=== PATIENT | female | born 1950 | race Caucasian/White ===

== ENCOUNTER 2019-12-25 08:56 | Day surgery (SDC) | payer MEDICARE ==
[2019-12-25 09:22] VITALS: RESP 16; TEMP 97.9
[2019-12-25 11:44] VITALS: BP 144/66; PULSE 81
== END 2019-12-25 09:45 | disposition home or self-care (01) ==
LOC: CATHCVL 08:56
PROVIDERS: ATTEND Internal Medicine Infectious Disease
DX: N39.0 Urinary tract infection, site not specified (principal); B96.20 Unspecified Escherichia coli [E. coli] as the cause of diseases classified elsewhere; Z16.23 Resistance to quinolones and fluoroquinolones
CPT/HCPCS: 36410; 76937; C1751

== ENCOUNTER → 2019-12-27 | Outpatient (CLI) | payer MEDICARE ==
--- NOTE | 2019-12-29 19:29 | US ---
EXAMINATION TYPE: US kidneys/renal and bladder DATE OF EXAM: 12/27/2019 COMPARISON: NONE CLINICAL HISTORY: 69-year-old female N39.0 RECURRENT UTI. TECHNIQUE: Multiple sonographic images of the kidneys and bladder are obtained. FINDINGS: EXAM MEASUREMENTS: Right Kidney: 10.0 x 4.4 x 4.9 cm Left Kidney: 10.0 x 4.4 x 4.8 cm Right Kidney: Benign upper pole cyst measures 1.8 cm . No hydronephrosis. Left Kidney: No hydronephrosis. Bladder: No gross abnormality. Bilateral Jets seen: Yes IMPRESSION: No hydronephrosis. Benign 1.8 cm cyst on the right.
== END | disposition home or self-care (01) ==
LOC: RADUSWWP 16:15
PROVIDERS: ATTEND Internal Medicine Infectious Disease
DX: N28.1 Cyst of kidney, acquired (principal)
CPT/HCPCS: 76770

== ENCOUNTER 2022-12-04 14:20 | Emergency (ER) | payer MEDICARE ==
[2022-12-04 14:30] VITALS: RESP 18
[2022-12-04] MEDS ORDERED: ACETAMINOPHEN TAB 500 MG TAB PO STA (14:56)
[2022-12-04] MEDS ORDERED: ONDANSETRON 4 MG/2 ML VIAL IVP STA (15:06)
[2022-12-04 15:21] LABS: Basophils % (A) 0 %; Eosinophils # (A) 0.2 k/uL (0-0.7); Eosinophils % (A) 3 %; HCT 35.4 % (34.0-46.0); HGB 12.3 gm/dL (11.4-16.0); Lymphocytes # (A) 1.7 k/uL (1.0-4.8); Lymphocytes % (A) 26 %; MCH 32.5 pg (25.0-35.0); MCHC 34.8 g/dL (31.0-37.0); MCV 93.3 fL (80.0-100.0); Mean Platelet Volume 8.1; Monocytes # (A) 0.3 k/uL (0-1.0); Monocytes % (A) 5 %; Neutrophils # (A) 4.1 k/uL (1.3-7.7); Neutrophils % (A) 64 %; Platelet Count 156 k/uL (150-450); RDW 12.8 % (11.5-15.5); WBC 6.4 k/uL (3.8-10.6)
--- NOTE | 2022-12-04 15:26 | ED ---
Dizziness HPI - General Chief Complaint: Syncope Stated Complaint: Syncope, altered mental status Time Seen by Provider: 12/04/22 14:37 Source: EMS Mode of arrival: EMS Limitations: altered mental status - History of Present Illness Initial Comments: Patient is a 72-year-old female presents to the emergency department for syncopal episode. Patient was walking with family when she had a syncopal episode. Patient was unconscious for about 1 minute. No seizure-like activity. Patient does not take blood thinners. Patient woke up and was initially co nfused but family states she is acting normal now. Patient has mild pain in the back of her head where she fell. She denies generalized headache, neck pain, double vision, blurry vision, chest pain, shortness of breath. Patient has felt nauseous and has had multiple episodes of vomiting. She denies history of arrhythmia and seizure. She does admit to multiple previous episodes of syncope which she says were due to not eating. Patient states she drank a cup of coffee and oatmeal this morning. She did not drink any water. She felt well and had no concerns before the episode. No recent fever, vomiting, abdominal pain, diarrhea, blood in stool. She denies history of arrhythmia. States she has had an echocardiogram 10 years ago states it was normal. She denies any family history of sudden . She denies alcohol and drug use. Patient does have history of hypothyroidism. - Related Data Home Medications Medication Instructions Recorded Confirmed Calcium Carbonate [Calcium] 1,200 mg PO DAILY 12/25/19 12/04/22 Levothyroxine Sodium [Synthroid] 50 mcg PO DAILY 12/25/19 12/04/22 Alendronate Sodium [Fosamax] 70 mg PO FR 12/04/22 12/04/22 Cholecalciferol [Vitamin D3 (25 50 mcg PO DAILY 12/04/22 12/04/22 Mcg = 1000 Iu)] Cyanocobalamin (Vitamin B-12) 1,000 mcg PO DAILY 12/04/22 12/04/22 [Vitamin B-12] Famotidine [Pepcid] 40 mg PO DAILY 12/04/22 12/04/22 Magnesium Oxide [Magnesium] 500 mg PO DAILY 12/04/22 12/04/22 Multivit-Min/Folic Acid/Biotin 133.3 mcg PO DAILY 12/04/22 12/04/22 [Hair, Skin and Nails Softgel] Multivitamins, Thera [Multivitamin 1 tab PO DAILY 12/04/22 12/04/22 (formulary)] Turmeric Root Extract [Turmeric] 500 mg PO DAILY 12/04/22 12/04/22 Previous Rx's Medication Instructions Recorded Ondansetron Odt [Zofran Odt] 4 mg PO Q8HR PRN #10 tab 12/04/22 Allergies Allergy/AdvReac Type Severity Reaction Status Date / Time codeine Allergy Vomiting/Passed Verified 12/04/22 16:33 out Sulfa (Sulfonamide Allergy Unknown Verified 12/04/22 16:33 Antibiotics) Review of Systems ROS Statement: Those systems with pertinent positive or pertinent negative responses have been documented in the HPI. ROS Other: All systems not noted in ROS Statement are negative. Past Medical History Past Medical History: Thyroid Disorder History of Any Multi-Drug Resistant Organisms: None Reported Past Surgical History: No Surgical Hx Reported Smoking Status: Never smoker Past Alcohol Use History: None Reported Past Drug Use History: None Reported General Exam Limitations: altered mental status General appearance: alert, in no apparent distress Head exam: Present: atraumatic, normocephalic, normal inspection Eye exam: Present: normal appearance, PERRL, EOMI. Absent: scleral icterus, conjunctival injection, periorbital swelling ENT exam: Present: mucous membranes dry, TM's normal bilaterally Neck exam: Present: normal inspection, full ROM. Absent: tenderness, meningismus Respiratory exam: Present: normal lung sounds bilaterally. Absent: respiratory distress, wheezes, rales, rhonchi, stridor Cardiovascular Exam: Present: regular rate, normal rhythm, normal heart sounds. Absent: systolic murmur, diastolic murmur, rubs, gallop, clicks GI/Abdominal exam: Present: soft, normal bowel sounds. Absent: distended, tenderness, guarding, rebound, rigid Extremities exam: Present: normal inspection, full ROM, normal capillary refill Neurological exam: Present: alert, oriented X3, CN II-XII intact Psychiatric exam: Present: normal affect, normal mood Skin exam: Present: warm, dry, intact, normal color. Absent: rash Course Vital Signs 12/04/22 12/04/22 14:22 15:18 Temperature 98.8 F Pulse Rate 71 87 Respiratory 18 18 Rate Blood Pressure 149/89 141/79 O2 Sat by Pulse 97 Oximetry Medical Decision Making - Medical Decision Making EKG taken at 15:18, interpreted by me Sinus bradycardia, no ST segment or T-wave abnormality Ventricular rate 57, WI interval 195, QRS duration 82, QTc 444 Was pt. sent in by a medical professional or institution (, RONNIE, BAT LATHE OPERATOR, urgent care, hospital, or detention...) When possible be specific @ -No Did you speak to anyone other than the patient for history (EMS, parent, family, police, friend...)? What history was obtained from this source @Family helped provide history of a syncopal event Did you review nursing and triage notes (agree or disagree)? Why? @ -I reviewed and agree with nursing and triage notes Were old charts reviewed (outside hosp., previous admission, EMS record, old EKG, old radiological studies, urgent care reports/EKG's, detention records)? Report findings @ -No old charts were reviewed Differential Diagnosis (chest pain, altered mental status, abdominal pain women, abdominal pain men, vaginal bleeding, weakness, fever, dyspnea, syncope, headache, dizziness, GI bleed, back pain, seizure, CVA, palpatations, mental health)? @ -Differential Syncope: Valvular disease, hypertrophic cardiomyopathy, pulmonary embolism, tamponade, tachycardia, bradycardia, AR, hypovolemia, hemorrhage, dissection, anemia, intracranial hemorrhage, seizure, hypoglycemia, carbon monoxide poisoning, this is not meant to be an all-inclusive list. EKG interpreted by me (3pts min.). @ -As above X-rays interpreted by me (1pt min.). @ -Yes, chest x-ray shows no acute process CT interpreted by me (1pt min.). @ -None done U/S interpreted by me (1pt. min.). @ -None done What testing was considered but not performed or refused? (CT, X-rays, U/S, labs)? Why? @ -None What meds were considered but not given or refused? Why? @ -None Did you discuss the management of the patient with other professionals (professionals i.e. RONNIE Gibbons, BAT LATHE OPERATOR, lab, RT, psych nurse, social media community manager, control valve technician, teacher, medical information officer, case picker)? Give summary @ -No Was smoking cessation discussed for >3mins.? @ -No Was critical care preformed (if so, how long)? @ -No Were there social determinants of health that impacted care today? How? (Homelessness, low income, unemployed, alcoholism, drug addiction, transportation, low edu. Level, literacy, decrease access to med. care, [facility], rehab)? @ -No Was there de-escalation of care discussed even if they declined (Discuss DNR or withdrawal of care, Hospice)? DNR status @ -No What co-morbidities impacted this encounter? (DM, HTN, Smoking, COPD, CAD, Cancer, CVA, ARF, Chemo, Hep., AIDS, mental health diagnosis, sleep apnea, morbid obesity)? @ -None Was patient admitted / discharged? Hospital course, mention meds given and route, prescriptions, significant lab abnormalities, going to OR and other pertinent info. @ -This is a 72-year-old female presenting for syncopal episode. Patient appears dehydrated. Hemodynamically stable She presents in c-collar. She is alert and oriented 4. EKG shows no evidence of acute ischemia. Laboratory studies obtained. Troponin and d-dimer are within normal limits. There is mild acute kidney injury, creatinine 1.1, BUN at 23. Only 1 previous creatinine for comparison which was 0.93. Patient did have some vomiting during visit. CT of the brain and C-spine was obtained which is negative for acute intracranial process and cervical fracture. C-collar was removed patient continues to deny headache and neck pain. Patient observed closely in the emergency department she received fluid bolus and Co mpazine with no further episodes of vomiting. Discussed syncope in detail with patient and family. I do suspect it is related to dehydration however patient has not had recent echocardiogram. We discussed disposition options including admission for further evaluation patient declined she is eager to go home. Patient will be discharged with strict return parameters. Undiagnosed new problem with uncertain prognosis? @ -No drug Therapy requiring intensive monitoring for toxicity (Heparin, Nitro, Insulin, Cardizem)? @ -No Were any procedures done? @ -No Diagnosis/symptom? @ -Syncope, dehydration Acute, or Chronic, or Acute on Chronic? @ -Acute Uncomplicated (without systemic symptoms) or Complicated (systemic symptoms)? @ -Uncomplicated Side effects of treatment? @ -No Exacerbation, Progression, or Severe Exacerbation? @ -No Poses a threat to life or bodily function? How? (Chest pain, USA, AR, pneumonia, PE, COPD, DKA, ARF, appy, cholecystitis, CVA, Diverticulitis, Homicidal, Suicidal, threat to staff... and all critical care pts) @ -No Dr. Salazar is my attending - Lab Data Result diagrams: 12/04/22 15:08 12/04/22 15:08 Lab Results 12/04/22 12/04/22 12/04/22 Range/Units 15:08 15:08 15:08 WBC 6.4 (3.8-10.6) k/uL RBC 3.80 (3.80-5.40) m/uL Hgb 12.3 (11.4-16.0) gm/dL Hct 35.4 (34.0-46.0) % MCV 93.3 (80.0-100.0) fL MCH 32.5 (25.0-35.0) pg MCHC 34.8 (31.0-37.0) g/dL RDW 12.8 (11.5-15.5) % Plt Count 156 (150-450) k/uL MPV 8.1 Neutrophils % 64 % Lymphocytes % 26 % Monocytes % 5 % Eosinophils % 3 % Basophils % 0 % Neutrophils # 4.1 (1.3-7.7) k/uL Lymphocytes # 1.7 (1.0-4.8) k/uL Monocytes # 0.3 (0-1.0) k/uL Eosinophils # 0.2 (0-0.7) k/uL Basophils # 0.0 (0-0.2) k/uL PT 10.2 (9.0-12.0) sec INR 1.0 (<1.2) APTT 22.9 (22.0-30.0) sec D-Dimer 0.32 (<0.60) mg/L FEU Sodium 135 L (137-145) mmol/L Potassium 4.0 (3.5-5.1) mmol/L Chloride 101 (98-107) mmol/L Carbon Dioxide 25 (22-30) mmol/L Anion Gap 9 mmol/L BUN 23 H (7-17) mg/dL Creatinine 1.10 H (0.52-1.04) mg/dL Est GFR (CKD-EPI)AfAm 58 (>60 ml/min/1.73 sqM) Est GFR (CKD-EPI)NonAf 50 (>60 ml/min/1.73 sqM) Glucose 103 H (74-99) mg/dL Calcium 9.4 (8.4-10.2) mg/dL Total Bilirubin 1.2 (0.2-1.3) mg/dL AST 36 (14-36) U/L ALT 26 (4-34) U/L Alkaline Phosphatase 86 (38-126) U/L Troponin I (0.000-0.034) ng/mL Total Protein 6.9 (6.3-8.2) g/dL Albumin 4.0 (3.5-5.0) g/dL TSH 4.560 (0.465-4.680) mIU/L 12/04/22 Range/Units 15:08 WBC (3.8-10.6) k/uL RBC (3.80-5.40) m/uL Hgb (11.4-16.0) gm/dL Hct (34.0-46.0) % MCV (80.0-100.0) fL MCH (25.0-35.0) pg MCHC (31.0-37.0) g/dL RDW (11.5-15.5) % Plt Count (150-450) k/uL MPV Neutrophils % % Lymphocytes % % Monocytes % % Eosinophils % % Basophils % % Neutrophils # (1.3-7.7) k/uL Lymphocytes # (1.0-4.8) k/uL Monocytes # (0-1.0) k/uL Eosinophils # (0-0.7) k/uL Basophils # (0-0.2) k/uL PT (9.0-12.0) sec INR (<1.2) APTT (22.0-30.0) sec D-Dimer (<0.60) mg/L FEU Sodium (137-145) mmol/L Potassium (3.5-5.1) mmol/L Chloride (98-107) mmol/L Carbon Dioxide (22-30) mmol/L Anion Gap mmol/L BUN (7-17) mg/dL Creatinine (0.52-1.04) mg/dL Est GFR (CKD-EPI)AfAm (>60 ml/min/1.73 sqM) Est GFR (CKD-EPI)NonAf (>60 ml/min/1.73 sqM) Glucose (74-99) mg/dL Calcium (8.4-10.2) mg/dL Total Bilirubin (0.2-1.3) mg/dL AST (14-36) U/L ALT (4-34) U/L Alkaline Phosphatase (38-126) U/L Troponin I <0.012 (0.000-0.034) ng/mL Total Protein (6.3-8.2) g/dL Albumin (3.5-5.0) g/dL TSH (0.465-4.680) mIU/L Disposition Clinical Impression: Dehydration, Syncope Disposition: HOME SELF-CARE Condition: Good Instructions (If sedation given, give patient instructions): Dehydration (ED), Syncope (ED) Additional Instructions: Increase fluid intake. Take medication as directed. Please follow-up with your primary care provider in 1-2 days. Return to the emergency department if you experience new, concerning, or worsening symptoms. Prescriptions: Ondansetron Odt [Zofran Odt] 4 mg PO Q8HR PRN #10 tab PRN Reason: Nausea Is patient prescribed a controlled substance at d/c from ED?: No Referrals: Sp Valdovinos MD [Primary Care Provider] - 1-2 days
[2022-12-04 15:33] LABS: ALT 26 U/L (4-34); AST 36 U/L (14-36); African American GFR (CKD) 58 (>60 ml/min/1.73 sqM); Alkaline Phosphatase 86 U/L (38-126); Anion Gap 9 mmol/L; Blood Urea Nitrogen 23 mg/dL (7-17); Calcium 9.4 mg/dL (8.4-10.2); Carbon Dioxide 25 mmol/L (22-30); Chloride 101 mmol/L (98-107); Glucose 103 mg/dL (74-99); Non-African American GFR(CKD) 50 (>60 ml/min/1.73 sqM); Partial Thromboplastin Time 22.9 sec (22.0-30.0); Prothrombin Time 10.2 sec (9.0-12.0); Sodium 135 mmol/L (137-145); Total Bilirubin 1.2 mg/dL (0.2-1.3); Total Protein 6.9 g/dL (6.3-8.2)
[2022-12-04] MEDS ORDERED: SODIUM CHLORIDE 0.9% 1,000 ML IV STA (15:42)
[2022-12-04] MEDS ORDERED: PROCHLORPERAZINE INJ 10 MG/2 ML VIAL IVP STA (15:43)
--- NOTE | 2022-12-04 16:15 | CT ---
EXAMINATION TYPE: CT brain karthik pro DATE OF EXAM: 12/04/2022 COMPARISON: NONE HISTORY: fall injury with headache and neck pain CT DLP: 1383.2 mGycm. Automated Exposure Control for Dose Reduction was Utilized. TECHNIQUE: CT scan of the head and cervical spine are performed without contrast. FINDINGS: There is no acute intracranial hemorrhage or midline shift identified. Mild ventricular a nd sulcal prominence. Mild low attenuation in the periventricular white matter. The calvarium is int act. The globes are intact and the visualized sinuses are clear. Cervical spine is visualized in its entirety from C1 through upper thoracic levels and demonstrates s light grade 1 anterolisthesis C3 on C4 and C7 on T1 without evidence of acute fracture or dislocation . Prevertebral soft tissue appears within normal limits. The C1-C2 articulation is within normal li mits on the coronal images. Vertebral body heights are preserved. There is mild to moderate disc spa ce narrowing C4-C5 through C6-C7 levels. Axial images show multilevel uncovertebral facet degenerativ e changes causing multilevel bilateral neural foraminal narrowing. Somewhat small size thyroid is pre sent. Lung apices show no pneumothorax. IMPRESSION: 1. There is no acute fracture or dislocation evident in the cervical spine. 2. No acute intracranial hemorrhage or midline shift is seen.
--- NOTE | 2022-12-04 16:59 | XR ---
EXAMINATION TYPE: XR chest 2V DATE OF EXAM: 12/04/2022 COMPARISON: Chest x-ray August 18, 2020 HISTORY: Syncope and weakness TECHNIQUE: Frontal and lateral views of the chest are obtained. FINDINGS: There is no suspicious focal air space opacity, pleural effusion, or pneumothorax seen. T he cardiac silhouette size is stable and within normal limits. The osseous structures are intact. IMPRESSION: No acute cardiopulmonary process. No significant change from prior.
[2022-12-04 19:34] VITALS: BP 149/64; PULSE 79; TEMP 98.3
== END 2022-12-04 19:34 | disposition home or self-care (01) ==
LOC: SUPCPDRO 14:20 → EC 14:20
DX: E86.0 Dehydration (principal); R55 Syncope and collapse; E03.9 Hypothyroidism, unspecified; Z79.890 Hormone replacement therapy; Z79.899 Other long term (current) drug therapy; Z88.1 Allergy status to other antibiotic agents; Z88.2 Allergy status to sulfonamides
CPT/HCPCS: 36415; 93005; 85379; 80053; 84443; 84484; 85025; 85610; 85730; 71046; 72125; 70450; 99285; 96374; 96375; 96361; J0780; J2405